=== PATIENT | male | born 1950 | race Caucasian/White ===

== ENCOUNTER → 2022-02-21 | Outpatient (CLI) | payer OTHER, SELFPAY ==
--- NOTE | 2022-02-21 08:17 | ECHOD_ITS ---
Reason For Study: CAD Procedure This was a 2D Doppler, Color Flow transthoracic echocardiogram. The study was technically difficult. Exam performed in department. Left Ventricle Normal LV size. Mild concentric left ventricular hypertrophy. Left ventricular systolic function is lower limits of normal. Post operative septal motion. Stage 1 diastolic dysfunction. The estimated ejection fraction is 53 %. Right Ventricle Normal RV size. Normal systolic function. Atria Normal left atrium. Normal right atrium. Mitral Valve Normal mitral valve. Tricuspid Valve Normal tricuspid valve. Aortic Valve Trisinus/trileaflet aortic valve. Pulmonic Valve Normal pulmonic valve. Great Vessels Normal aortic root. The pulmonary artery is normal size. Normal inferior vena cava. Pericardium/Pleural No pericardial effusion. MMode/2D Measurements & Calculations LVIDd: 5.1 cm IVSd: 1.2 cm Ao root diam: 2.8 cm LVIDs: 3.2 cm LVPWd: 1.2 cm RVDd: 3.5 cm FS: 36.8 % LAV(MOD-bp): 62.4 ml LVAd ap4: 26.1 cm2 SV(MOD-sp4): 42.0 ml LAV(MOD-bp) Indexed: 33.0 ml/m2 LVLd ap4: 7.7 cm LAV(MOD-sp2): 61.5 ml EDV(MOD-sp4): 75.8 ml LAV(MOD-sp4): 56.7 ml EDV(sp4-el): 74.9 ml LVAs ap4: 16.4 cm2 LVLs ap4: 6.9 cm ESV(MOD-sp4): 33.8 ml ESV(sp4-el): 33.4 ml EF(MOD-sp4): 55.4 % EF(sp4-el): 55.4 % SV(sp4-el): 41.5 ml LA A4 area: 20.6 cm2 LA dimension(2D): 4.4 cm RA A4 area: 14.9 cm2 Doppler Measurements & Calculations MV E max felix: 92.9 cm/sec Lat Peak E' Felix: 8.8 cm/sec Med Peak E' Felix: 5.4 cm/sec MV A max felix: 101.3 cm/sec E/E' lat: 10.5 E/E' med: 17.1 MV E/A: 0.92 Ao V2 max: 137.7 cm/sec LV V1 max: 70.9 cm/sec PA V2 max: 126.2 cm/sec Ao max P.6 mmHg LV V1 max P.0 mmHg ECHO/Echo Complete Interpretation Summary Normal LV size. Left ventricular systolic function is lower limits of normal. Post operative septal motion. Stage 1 diastolic dysfunction. Mild concentric left ventricular hypertrophy. The estimated ejection fraction is 53 %. Ordering Physician: GHADA SIMMONS Performed By: Marcelina Adams RCS
[2022-02-21 08:42] LABS: Color, Urine Straw (Yellow); Glucose, Dipstick 1000 mg/dl (Normal); Ketone-Dipstick Negative (Negative); Leukocyte Esterase-Dipstick Negative /ul (Negative); Nitrite-Dipstick Negative (Negative); Occult Blood-Urine Negative /ul (Negative); Protein-Dipstick 15 mg/dl (Negative); Specific Gravity, Urine 1.015 (1.002-1.030); Urine Bilirubin Dipstick Negative (Negative); Urine Clarity Clear (Clear); Urine Urobilinogen Normal (Normal)
[2022-02-21 09:12] LABS: ALB/GLOB Ratio 0.7 RATIO (0.9-2.4); AST(SGOT) 15 U/L (15-37); Alanine Aminotransfer ALT/SGPT 21 U/L (16-61); Albumin, Serum 3.3 g/dL (3.2-5.0); Alkaline Phosphatase 95 U/L (45-117); Anion Gap 8 (5-15); BUN 35 mg/dL (7-18); BUN/Creat Ratio 22.2 RATIO (10-20); Calcium,Total 8.7 mg/dL (8.5-10.1); Chloride 106 mmol/L (98-107); Creatinine, Serum 1.58 mg/dL (0.70-1.30); EST Glomerular Filtration Rate 46 mL/min (>60); Est Glom Filt Rate - Afr Amer 56 mL/min (>60); Globulin 4.5 g/dL (2.2-4.2); Glucose 130 mg/dL (74-106); Potassium 4.5 mmol/L (3.5-5.1); Protein, Total 7.8 g/dL (6.4-8.2); Sodium Level 138 mmol/L (136-145)
== END | disposition home or self-care (01) ==
DX: I25.10 Atherosclerotic heart disease of native coronary artery without angina pectoris (principal); E11.9 Type 2 diabetes mellitus without complications
CPT/HCPCS: 36415; 80053; 81002; 93306